=== PATIENT | male | born 1970 | race Caucasian/White ===

== ENCOUNTER → 2019-02-02 | Outpatient (CLI) | payer BC ==
--- NOTE | 2019-02-03 07:48 | KCIC ---
MRI left shoulder without contrast dated 02/02/2019 5:00 PM Indication: Left shoulder pain limited range of motion. History of prior surgery.. Comparison: No comparison is available. Technique: Routine multiplanar multisequence imaging performed. . Findings: Study is limited due to motion artifact and poor signal. There is severe degenerative change of the glenohumeral joint with erosive changes of the glenoid and medial humeral head. Full-thickness cartilage loss throughout. There is also some susceptibility artifact of the anterior inferior glenoid, likely related to prior labral repair. There is marked blunting and ill-definition of the glenoid labrum anteriorly and posteriorly. No perilabral cyst. No displaced labral tissue. Long head biceps tendon is intact. Extra articular portion courses within the bicipital groove. Moderate hypertrophic change of the acromioclavicular joint. Mild undersurface spurring of the acromium. No significant subacromial/subdeltoid bursal fluid collection. Acromium is type II morphology. There is intermediate T2 signal throughout the supraspinatus and infraspinatus portions of the rotator cuff. Moderate thinning of the rotator cuff footplate without definite full-thickness tear. No cuff retraction. Subscapularis is grossly intact. Mild diffuse atrophy of the rotator cuff musculature. No significant muscle edema. Suprascapular and spinoglenoid notches are clear. Mild patchy subchondral edema within the humeral head. No bone marrow edema or discrete fracture line. IMPRESSION: 1. 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 2. 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 Mild to moderate rotator cuff tendinopathy with no evidence of full-thickness tear. 4. AC joint arthropathy with undersurface spurring of the acromium. 5. Generalized muscle atrophy. Electronically signed by: Kaushal Pierre MD (02/03/2019 7:45 AM) [id number]
== END | disposition home or self-care (01) ==
LOC: KCIC MRI 16:45
PROVIDERS: ATTEND Family Medicine
DX: S43.492A Other sprain of left shoulder joint, initial encounter (principal); M94.212 Chondromalacia, left shoulder; M19.012 Primary osteoarthritis, left shoulder; M77.8 Other enthesopathies, not elsewhere classified; M62.512 Muscle wasting and atrophy, not elsewhere classified, left shoulder; X58.XXXA Exposure to other specified factors, initial encounter; Y93.89 Activity, other specified; Y92.89 Other specified places as the place of occurrence of the external cause; Y99.8 Other external cause status
CPT/HCPCS: 73221